=== PATIENT | female | born 1990 | race African-American/Black ===

== ENCOUNTER 2017-04-06 10:56 | Emergency (ER) | payer SELFPAY ==
[~2017-04-06] VITALS: Ht 162.6 cm; Wt 48.5 kg
[2017-04-06 11:20] VITALS: BP 114/67
--- NOTE | 2017-04-06 11:23 | NUR ---
PT TO CHAIR D
--- NOTE | 2017-04-06 11:27 | NUR ---
PT REPORTS [employer] COUGH AND COLD SYMPTIOMS X 2 DAYS, DENIES ANY FEVERS/CHILLS. RESP EVEN AND UNLABORED, COARSE LS TO RLL. DENIES N/V/D. SKIN W/D/I
--- NOTE | 2017-04-06 11:32 | NUR ---
DR CHANEL IN ROOM FOR EXAM
[2017-04-06] MEDS ORDERED: DEXAMETHASONE 10 MG/ML VIAL IM ONE (11:45)
[2017-04-06] MEDS ORDERED: ALBUTEROL SULFATE/IPRATROPIU 3 ML SOL IH ONE (11:45)
[2017-04-06] MEDS ORDERED: cefTRIAXone 1,000 MG in LIDOCAINE 1% ***ER ONLY *** 2.1 ML IM ONE (11:45)
[2017-04-06] MEDS ORDERED: cefTRIAXone 1,000 MG VIAL ONE (11:50)
[2017-04-06] MEDS ORDERED: LIDOCAINE MPF 1% - **ER/OR** 5 ML ONE (11:51)
--- NOTE | 2017-04-06 12:03 | NUR ---
rt atbedside for treatement, pt tolerating well
[2017-04-06 12:25] VITALS: BP 122/69
--- NOTE | 2017-04-06 12:26 | NUR ---
Patient discharged with v/s stable. Written and verbal after care instructions given and explained. Patient alert, oriented and verbalized understanding of instructions. Ambulatory with steady gait. All questions addressed prior to discharge. ID band removed. Patient advised to follow up with PMD. Rx of azithromycin, prednisone,albuterol given. Patient educated on indication of medication including possible reaction and side effects. Opportunity to ask questions provided and answered.
== END 2017-04-06 12:26 | disposition home or self-care (01) ==
LOC: MED 10:56
DX: J45.909 Unspecified asthma, uncomplicated (principal)
CPT/HCPCS: 94640; 96372; 99284; J0696; J1100; J2001; J7620